=== PATIENT | female | born 1955 | race Caucasian/White ===

== ENCOUNTER 2016-06-07 12:04 | Emergency (ER) | payer OTHER ==
[2016-06-07 12:45] LABS: BLOOD UREA NITROGEN 12 mg/dL (7-17); CALCIUM 9.1 mg/dL (8.4-10.2); CHLORIDE 105 mmol/L (98-107); CREATININE 0.7 mg/dL (0.5-1.0); EST GLOMERULAR FILTRATION RATE > 60 mL/min; GLUCOSE 105 mg/dL (70-100); POTASSIUM 3.8 mmol/L (3.5-5.1); SODIUM 140 mmol/L (137-145)
[2016-06-07] MEDS ORDERED: LOPERAMIDE HCL 2 MG CAPSULE PO ONE (12:54)
[2016-06-07 13:13] LABS: BAND% (Manual) 3 % (0.0-1.0); BASOPHIL % (Manual) 1 % (0.0-2.0); HEMATOCRIT 47.9 % (36.0-48.0); HEMOGLOBIN 16.4 g/dL (12.0-16.0); LYMPHOCYTE % (Manual) 21 % (20.0-40.0); MEAN CELL VOLUME 95.1 fL (80.0-100.0); MEAN CORPUS. HGB CONCENTRATION 34.3 g/dL (32.0-36.0); MEAN CORPUSCULAR HEMOGLOBIN 32.6 pg (29.0-35.0); MEAN PLATELET VOLUME 9.5 fL (7.4-10.4); MONOCYTE % (Manual) 2 % (2.0-10.0); NEUTROPHIL % (Manual) 73 % (54.0-75.0); PLATELET COUNT 248 X 10^3uL (130-440); RED BLOOD COUNT 5.04 X 10^6uL (4.20-6.10); RED CELL DISTRIBUTION WIDTH 11.3 % (11.5-14.5); WHITE BLOOD COUNT 8.5 X 10^3uL (3.9-10.7)
[2016-06-07 13:14] LABS: PLATELET ESTIMATE ADEQUATE
--- NOTE | 2016-06-07 13:46 | ER PHYSICIAN DOCUMENTATION ---
Physician Documentation [facility] Name:Nina Cohen Age:60 yrs Sex:Female :1955 Arrival Date:06/07/2016 Time:12:04 Bed3 Private MD: Jorge Alberto Cook Disposition: 06/07/16 12:45 Discharged to Home/Self Care. Impression: Irritable Bowel Syndrome (IBS), Gastroenteritis. - Condition is Good. - Discharge Instructions: GASTROENTERITIS, Non-Infectious [6y-Adult], IRRITABLE BOWEL SYNDROME. - Medical Reconciliation form form. - Follow up: Emergency Department; When: As needed; Reason: Worsening of condition. - Problem is new. - Symptoms have improved. HPI: 06/07 12:42 This 60 yrs old Female presents to ER via Private Vehicle with complaints of sc Nausea/Vomiting/Diarrhea. 12:42 The patient presents to the emergency department with nausea, that is mild, with sc vomiting, a few times, with diarrhea, that is continuous, 15 times today, without any complaints of abdominal pain. Onset: The symptom(s)/episode began/occurred this morning. Possible causes: bad food exposure, IBS possible triggered by big wedding dinner last night. Associated signs and symptoms: The patient has no apparent associated signs or symptoms. Severity of symptoms: At their worst the symptoms were moderate. The patient has experienced similar episodes in the past, a few times. Historical: - Allergies: Sulfa (Sulfonamide Antibiotics); - Home Meds: 1. dicyclomine Oral 2. probiotics - PMHx: iritable colone; - Tetanus: < 10 years. - Ebola Screening: : Patient denies exposure to infectious person. Patient denies travel to an Ebola-affected area in the 21 days before illness onset. . - Social history: Smoking status: Patient states was never smoker of tobacco. Patient uses alcohol Patient/guardian denies using marijuana. ROS: 12:43 Constitutional: Negative for fever, chills, and weight loss. sc Eyes: Negative for injury, pain, redness, and discharge. ENT: Negative for injury, pain, and discharge. Neck: Negative for injury, pain, and swelling. Cardiovascular: Negative for chest pain, palpitations, and edema. Respiratory: Negative for shortness of breath, cough, wheezing, and pleuritic chest pain. Back: Negative for injury and pain. Skin: Negative for injury, rash, and discoloration. 12:43 Neuro: Negative for headache, weakness, numbness, tingling, and seizure. ga 12:43 Abdomen/GI: Positive for nausea, vomiting, diarrhea, Negative for abdominal pain, constipation, abdominal distension. Exam: Constitutional: This is a well developed, well nourished patient who is awake, alert, and in no acute distress. Head/Face: Normocephalic, atraumatic. Eyes: Pupils equal round and reactive to light, extra-ocular motions intact. Lids and lashes normal. Conjunctiva and sclera are non-icteric and not injected. Cornea within normal limits. Periorbital areas with no swelling, redness, or edema. Neck: Trachea midline, no thyromegaly or masses palpated, and no cervical lymphadenopathy. Supple, full range of motion without nuchal rigidity, or vertebral point tenderness. No meningismus. Chest/axilla: Normal chest wall appearance and motion. Nontender with no deformity. No lesions are appreciated. Cardiovascular: Regular rate and rhythm with a normal S1 and S2. No gallops, murmurs, or rubs. Normal PMI, no JVD. No pulse deficits. Respiratory: Lungs have equal breath sounds bilaterally, clear to auscultation and percussion. No rales, rhonchi or wheezes noted. No increased work of breathing, no retractions or nasal flaring. Back: No spinal tenderness. No costovertebral tenderness. Full range of motion. Female : Normal external genitalia. MS/ Extremity: Pulses equal, no cyanosis. Neurovascular intact. Full, normal range of motion, negative Homans's, calves equal bilaterally. 12:44 Neuro: Awake and alert, GCS 15, oriented to person, place, time, and situation. ga Cranial nerves II-XII grossly intact. Motor strength 5/5 in all extremities. Sensory grossly intact. Cerebellar exam normal. Normal gait. 12:44 ENT: Mouth: Oral mucosa: dry. 12:44 Skin: Turgor: is poor, tenting is noted. 12:46 Abdomen/GI: Inspection: abdomen appears normal, Bowel sounds: normal, Palpation: ga abdomen is soft and non-tender. Vital Signs: 12:06 BP 139 / 73; Pulse 62; Temp 97.5; Pulse Ox 96% on R/A; Pain 6/10; st 13:17 BP 101 / 54 (auto/); Pulse 66; Pulse Ox 98% on 2 lpm NC; Pain 4/10; st MDM: 12:08 Patient medically screened. ga 12:44 Differential diagnosis: Nonspecific abd pain, gastritis, viral gastroenteritis, sc gastroenteritis, IBS. Data reviewed: vital signs, nurses notes, lab test result(s), and as a result, I will continue to observe the patient, administer IV fluids. Counseling: I had a detailed discussion with the patient and/or guardian regarding: the historical points, exam findings, and any diagnostic results supporting the discharge/admit diagnosis, lab results. 06/07 12:52 Order name: BASIC METABOLIC PANEL EDMS 06/07 13:13 Order name: CBC WITHOUT A DIFFERENTIAL EDMS 06/07 13:14 Order name: MANUAL DIFFERENTIAL EDMS Dispensed Medications: 12:26 Drug: NS 0.9% 1000 ml; Route: IV; Rate: bolus; Site: right forearm; st 12:45 Follow up: IV Status: Completed infusion; IV Intake: 1000ml st 12:45 Drug: Imodium A-D 4 mg; Route: PO; st 13:44 Follow up: Response: No adverse reaction st 12:46 Drug: NS 0.9% 1000 ml; Route: IV; Rate: bolus; Site: right forearm; st 13:44 Follow up: IV Status: Completed infusion; IV Intake: 1000ml st Signatures: Karen Vo RN RN st Chew, Scott, MD MD ga
--- NOTE | 2016-06-07 13:46 | ER NURSING DOCUMENTATION ---
Nurse's Notes [facility] Name:Nina Cohen Age:60 yrs Sex:Female :1955 Arrival Date:06/07/2016 Time:12:04 Bed3 Private MD: Diagnosis:Irritable Bowel Syndrome (IBS);Gastroenteritis Presentation: 06/07 12:06 Presenting complaint: Patient states: pt started to have N/V/D at 8AM. Now she feels st dizzy with standing. and generally does not feel well. Transition of care: Home. 12:06 Method Of Arrival: Private Vehicle st 12:06 Care prior to arrival: Medication(s) given: Zofran 4mgODT. st 12:13 Acuity: GRIS 3 st Triage Assessment: 12:06 General: Appears ill, uncomfortable, Behavior is cooperative. Pain: Complains of pain st in abdomen Pain currently is 6 out of 10 on a pain scale. Quality of pain is described as crampy. EENT: Oral mucosa is dry. Cardiovascular: No deficits noted. Cardiovascular: Capillary refill < 3 seconds Pulses are palpable in right radial artery Reports lightheadedness. Respiratory: No deficits noted. GI: Abdomen is non- distended Abd is soft X 4 quads Abdomen is tender to palpation X 4 quads. Reports diarrhea, nausea, vomiting. Historical: - Allergies: Sulfa (Sulfonamide Antibiotics); - Home Meds: 1. dicyclomine Oral 2. probiotics - PMHx: iritable colone; - Tetanus: < 10 years. - Ebola Screening: : Patient denies exposure to infectious person. Patient denies travel to an Ebola-affected area in the 21 days before illness onset. . - Social history: Smoking status: Patient states was never smoker of tobacco. Patient uses alcohol Patient/guardian denies using marijuana. Screenin:34 Infectious Disease Risk None. Abuse screen: Denies threats or abuse. Denies injuries st from another. pt feels safe at home. Nutritional screening: No deficits noted. Assessment: 13:45 General: pt states she is feeling better. still a little light headed but much better. st pt is able to stand without troubles. . Vital Signs: 12:06 BP 139 / 73; Pulse 62; Temp 97.5; Pulse Ox 96% on R/A; Pain 6/10; st 13:17 BP 101 / 54 (auto/); Pulse 66; Pulse Ox 98% on 2 lpm NC; Pain 4/10; st ED Course: 12:06 Patient arrived in ED. arc 12:08 Jorge Alberto Mayfield MD is Attending Physician. sc 12:13 Karen Vo RN is Primary Nurse. st 12:[address] 12:26 Inserted peripheral IV: 20 gauge in right forearm and blood collected. st 12:34 Valuables Remains with patient. st Administered Medications: 12:26 Drug: NS 0.9% 1000 ml; Route: IV; Rate: bolus; Site: right forearm; st 12:45 Follow up: IV Status: Completed infusion; IV Intake: 1000ml st 12:45 Drug: Imodium A-D 4 mg; Route: PO; st 13:44 Follow up: Response: No adverse reaction st 12:46 Drug: NS 0.9% 1000 ml; Route: IV; Rate: bolus; Site: right forearm; st 13:44 Follow up: IV Status: Completed infusion; IV Intake: 1000ml st Intake: 12:45 IV: 1000ml; Total: 1000ml. st 13:44 IV: 1000ml; Total: 2000ml. st Outcome: 12:45 Discharge ordered by . [place] 13:44 Discharged to home ambulatory. st 13:44 Condition: improved 13:44 Discharge instructions given to patient, Instructed on discharge instructions, follow up and referral plans. 13:44 IV D/Scot 13:46 [address] the ED[address] st 04 11:28 Discharge F/U Call: Unable to reach: non-working number st 11:29 Discharge F/U Call: Unable to reach: non-working number st Signatures: Karen Vo RN RN st Jorge Alberto Mayfield MD MD [place] Brianne Mayfield, Reg Reg arc
== END 2016-06-07 13:46 | disposition home or self-care (01) ==
LOC: ER 12:04
DX: K58.9 Irritable bowel syndrome, unspecified (principal); K52.89 Other specified noninfective gastroenteritis and colitis; E86.0 Dehydration; Z79.899 Other long term (current) drug therapy
CPT/HCPCS: 80048; 85007; 85027; 96360; 99283